=== PATIENT | female | born 1980 | race Caucasian/White ===

== ENCOUNTER 2016-12-16 21:22 | Inpatient (IN) | payer OTHER ==
[~2016-12-16] VITALS: Ht 172.7 cm; Wt 108.4 kg
[~2016-12-16 21:22] MED LIST: DOCO200C; LEVO100T5 PO; MACR100C2 PO; ZANT150T2 PO
[2016-12-16] MEDS ORDERED: SODIUM CHLOR 0.9% 1000 ML INJ 1,000 ML OTHER PRN (21:53)
[2016-12-16] MEDS: LACTATED RINGER'S 1000 ML INJ 1,000 ML IV SCH (21:53)
[2016-12-16] MEDS ORDERED: LACTATED RINGER'S 1000 ML INJ 1,000 ML IV PRN (21:56)
[2016-12-16 22:00] VITALS: RESP 18; TEMP 97.9
[2016-12-16] MEDS ORDERED: SODIUM CHLORID 0.9% 500 ML INJ 500 ML IV PRN (22:00)
[2016-12-16] MEDS ORDERED: LIDOCAINE HCL 1% 50 ML VIAL INFIL PRN (22:00)
[2016-12-16] MEDS ORDERED: MINERAL OIL 10 ML VIAL TOPICAL PRN (22:00)
[2016-12-16] MEDS ORDERED: CITRIC ACID-SODIUM CITRATE LIQ 30 ML UDC PO SCH (22:00)
[2016-12-16] MEDS ORDERED: ONDANSETRON HCL 4 MG/2 ML VIAL IV PRN (22:00)
[2016-12-16] MEDS ORDERED: MISOPROSTOL 25 MCG SUPP VAGINAL ONE (22:00)
[2016-12-16] MEDS ORDERED: LIDOCAINE HCL 1% 50 ML VIAL I-DERMAL PRN (22:00)
[2016-12-16] MEDS ORDERED: SODIUM CHLORIDE 0.9% FLUSH 10 ML FLUSH IV FLUSH PRN (22:00)
[2016-12-16] MEDS ORDERED: OXYTOCIN 30 UNITS-500ML PREMIX 500 ML IV ONE (22:00)
--- NOTE | 2016-12-16 22:10 | HHI.HP ---
HPI Chief Complaint iol for ghtn Date Seen: Dec 16, 2016 Travel History International Travel<30 Days: No Contact w/Intl Traveler<30Days: No Known Affected Area: No History of Present Illness HPI 26 yo being admitted for iol for ghtn and suspected macrosomia. She was seen in clinic today and noted to have BP elevated from baseline and trace proteinuria. She has had no visual changes, ruq pain, or MOORE. Notes good movement, no lof, irreg contractions. Para: 1 : 2 History Past Medical History Narrative Medical obesity, hypothyroid, childhood asthma Obstetric History Obstetric History G1 at 39 wk, 7 lb 15 oz female, delivered by Dr. Dennison Past Surgical History Surgical History: No Previous Surgery Family History Family History: Negative Social History Alcohol Use: No Tobacco Use: No Substance Abuse: No Allergies-Medications (Allergen,Severity, Reaction): Coded Allergies: No Known Allergies (Unverified , 05/02/16) Home Meds Active Scripts Nitrofurantoin Monohydrate Macrocrystals (Macrobid)100 Mg [id number] Mg PO BID 7 Days Prov:Paty Perez MD 05/02/16 Reported Medications Ranitidine (Zantac)150 Mg [id number] Mg PO BID #60 TAB Ref 0 05/02/16 Docosahexaenoic Acid ( Dha)200 Mg Cap 05/02/16 Levothyroxine 100 Mcg [id number] Mcg PO DAILY #30 TAB Ref 0 05/02/16 Review of Systems General / Constitutional: No: Fever, Weight Gain, Chills, Other Eyes: No: Diploplia, Blurred Vision, Visual changes, Pain, Photophobia HENT: No: Headaches, Vertigo, Lightheadedness Cardiovascular: No: Irregular Rhythm, Chest Pain or Discomfort, Palpitations, Tachycardia, Syncope, Varicosities, Edema, Cyanosis Respiratory: No: Cough, Short of Breath, Other Gastrointestinal: No: Nausea, Vomiting, Diarrhea Genitourinary: No: Decreased Urinary Output, Oliguria Musculoskeletal: No: Limited ROM, Weakness, Cramping, Edema, Pain Skin: No Rash, No Itching, No Dryness, No Lumps, No Change in Pigmentation, No Change in Nails, No Alopecia, No Lesions Neurologic: No: Weakness, Dizziness, Syncope, Focal Abnormalities, Coordination Problem, Headache, Slurred Speech, Seizures Psychiatric: No: Depression, Suicidal Ideations, Homicidal Ideation Endocrine: No: Heat Intolerance, Cold Intolerance, Polydipsia, Polyuria, Other Physical Exam Narrative GENERAL: Well-nourished, well-developed patient. SKIN: Warm and dry. HEAD: Normocephalic and atraumatic. EYES: No scleral icterus. No injection or drainage. ENT: No nasal drainage noted. Mucous membranes pink. Airway patent. NECK: Supple, trachea midline. No JVD. CARDIOVASCULAR: Regular rate and rhythm without murmurs, gallops, or rubs. RESPIRATORY: Breath sounds equal bilaterally. No accessory muscle use. ABDOMEN/GI: Abdomen soft, non-tender, bowel sounds present, no rebound, no guarding Gravid to [-] weeks size Fundal Height: [-] GENITOURINARY: External Genitalia: intact and normal in appearance BUS glands: [-] Cervix: [-] Dilatation: [2/50/-3] Effacement: [-] Station: [-] Presentation: [-] Membranes: [intact Uterine Contractions: [-] FHT's: Cat I Category: [-] Baseline: [- Reactive: [-] Variability: [-] Decels: [-] EXTREMITIES: No cyanosis or edema. BACK: Nontender without obvious deformity. No CVA tenderness. NEUROLOGICAL: Awake and alert. Motor and sensory grossly within normal limits. Five out of 5 muscle strength in all muscle groups. Normal speech. Data Data Vital Signs Reviewed: Yes Orders Admit To Inpatient (12/16/16 ) Diet Liquid (12/17/16 Breakfast) ^ Labor Induction (12/16/16 21:53) ^ Vaginal Insert (12/16/16 21:53) ^ Vaginal Lavage (12/16/16 21:53) Heart (12/16/16 21:53) Lactated Ringer's 1000 Ml Inj (Lr 1000 M (12/16/16 21:53) Sodium Chloride 0.9% Flush (Ns Flush) (12/17/16 09:00) Sodium Chloride 0.9% Flush (Ns Flush) (12/16/16 22:00) Sodium Chlor 0.9% 1000 Ml Inj (Ns 1000 M (12/16/16 21:53) Misoprostol Supp (Cytotec Supp) (12/16/16 22:00) Misoprostol Supp (Cytotec Supp) (12/17/16 02:00) Inpatient Certification (12/16/16 ) Comprehensive Metabolic Panel (12/16/16 21:55) Uric Acid (12/16/16 21:55) Levothyroxine (Synthroid) (12/17/16 09:00) Vital Signs (Adult) .Per protocol (12/16/16 21:56) Activity Oob Ad Marilu (12/16/16 21:56) Heart (12/16/16 21:56) Amnioinfusion (12/16/16 21:56) Urinary Catheter Management .ONCE (12/16/16 21:56) Lactated Ringer's 1000 Ml Inj (Lr 1000 M (12/16/16 21:56) Sodium Chlorid 0.9% 500 Ml Inj (Ns 500 M (12/16/16 22:00) Sodium Chlor 0.9% 1000 Ml Inj (Ns 1000 M (12/16/16 22:16) Lidocaine 1% Inj (50 Ml) (Xylocaine 1% I (12/16/16 22:00) Citric Acid-Sodium Citrate Liq (Bicitra (12/16/16 22:00) Ondansetron Inj (Zofran Inj) (12/16/16 22:00) Fentanyl Inj (Fentanyl Inj) (12/16/16 22:00) Fentanyl Inj (Fentanyl Inj) (12/16/16 22:00) Complete Blood Count With Diff (12/16/16 21:56) Hold Clot (12/16/16 21:56) Abo/Rh Blood Type (12/16/16 21:56) Urinalysis - C+S If Indicated (12/16/16 21:56) Resp Oxygen Non Rebreathe Mask (12/16/16 ) ^ Epidural / Intrathecal Infus (12/16/16 21:56) Oxytocin 30 Units-500ml Premix (Pitocin (12/16/16 22:00) Lidocaine 1% Inj (50 Ml) (Xylocaine 1% I (12/16/16 22:00) Light Mineral Oil (Muri-Lube Oil) (12/16/16 22:00) Specimen To Be Collected PRN (12/16/16 21:56) Assessment/Plan Assessment and Plan 36 yo with iup at 39w2d being admitted for iol for ghtn 1) GHTN- will get pih labs 2) iol- will start with misoprostol sup 3) elevated bmi- 33 lb wt gain this ; normal 1 hr gct, followed with growth u/s in third trimester 4) suspected macrosomia- last growth u/s on 11/29 noted EFW 98%ile, 8 lb 6 oz. Projected weight 9-9.5 pounds now. Offered primary CD, pt declined. Discussed at length over multiple visits risks of macrosomia including arrest of dilation and descent, uterine atony and hemorrhage risk, shoulder dystocia and associated maternal complications of lacerations, hematomas, along w risks of clavicular/humeral fracture, brachial plexus injury, anoxic injury. Pelvis is only proven to 7lb 15 oz 5) Rh neg- rhogam given at 28 wk 6) Hypothyroidism on Synthroid 100 microgram 7) GBS negative Lynsey Sandy MD Dec 16, 2016 22:10
[2016-12-16] MEDS ORDERED: SODIUM CHLOR 0.9% 1000 ML INJ 1,000 ML IV PRN (22:16)
[2016-12-16] MEDS ORDERED: ZOLPIDEM TARTRATE 10 MG TAB PO PRN (22:30)
[2016-12-16 22:51] VITALS: BP 124/72; PULSE 94
[2016-12-16 23:00] VITALS: RESP 20
[2016-12-16 23:15] LABS: AUTOMATED NEUTROPHIL # 7.4 TH/MM3 (1.8-7.7); BASOPHIL % 0.4 % (0.0-2.0); EOSINOPHIL # 0.2 TH/MM3 (0-0.4); EOSINOPHIL % 1.9 % (0.0-4.0); HEMATOCRIT 39.4 % (35.0-46.0); HEMO FLAGS DIFF FINAL; LYMPH % 21.2 % (9.0-44.0); LYMPHOCYTE # 2.3 TH/MM3 (1.0-4.8); MEAN CELL VOLUME 80.6 FL (80.0-100.0); MEAN CORPUSCULAR HEMOGLOBIN 25.6 PG (27.0-34.0); MEAN CORPUSCULAR HGB CONC 31.8 % (32.0-36.0); MONO % 6.5 % (0.0-8.0); PLATELET COUNT 275 TH/MM3 (150-450); RED BLOOD COUNT 4.89 MIL/MM3 (4.00-5.30); WHITE BLOOD COUNT 10.6 TH/MM3 (4.0-11.0)
[2016-12-16 23:28] LABS: BLOOD, URINE NEG (NEG); COMMENT (UR) CULT NOT INDICATED; CULTURE IF INDICATED CULT NOT INDICATED; GLUCOSE,URINE 70 mg/dL (NEG); KETONE, URINE TRACE mg/dL (NEG); MUCUS URINE FEW /lpf (OCC); NITRITE,URINE NEG (NEG); SQUAMOUS EPITHELIAL CELL URINE 7 /hpf (0-5); URINE COLOR YELLOW (YELLW/STRAW)
[2016-12-16 23:39] VITALS: BP 133/59; PULSE 87; RESP 18
[2016-12-16 23:44] LABS: ALT (GPT) 16 U/L (10-53); ANION GAP 8 MEQ/L (5-15); AST (GOT) 13 U/L (15-37); BICARBONATE 25.6 MEQ/L (21.0-32.0); BLOOD UREA NITROGEN 9 MG/DL (7-18); CHLORIDE 108 MEQ/L (98-107); GLOMERULAR FILTRATION RATE 108 ML/MIN (>89); SODIUM (NA) 142 MEQ/L (136-145); URIC ACID 4.6 MG/DL (2.6-6.0)
[2016-12-16 23:46] LABS: ALKALINE PHOSPHATASE 126 U/L (45-117); TOTAL BILIRUBIN ADULT 0.2 MG/DL (0.2-1.0)
[2016-12-17] VITALS (35 sets, daily range): BP systolic 108–144; BP diastolic 54–87; PULSE 62–88; RESP 16–20; TEMP 97.4–98.2; O2SAT 99–100
[2016-12-17] MEDS ORDERED: MISOPROSTOL 25 MCG SUPP VAGINAL PRN (02:00)
[2016-12-17] MEDS ORDERED: OXYTOCIN 30 UNITS/NS 500ML PREMIX IV SCH (06:00)
[2016-12-17] MEDS ORDERED: LEVOTHYROXINE SODIUM 100 MCG TAB PO SCH (07:00)
[2016-12-17] MEDS ORDERED: OXYTOCIN 30 UNITS-500ML PREMIX 500 ML IV SCH (08:15)
[2016-12-17] MEDS ORDERED: SODIUM CHLORIDE 0.9% FLUSH 10 ML FLUSH IV FLUSH SCH ×2 (09:00→21:00)
[2016-12-17] MEDS: LACTATED RINGER'S 1000 ML INJ 1,000 ML IV SCH (09:39)
[2016-12-17] MEDS ORDERED: OXYTOCIN 10 UNIT/ML AMP ONE (15:28)
[2016-12-17] MEDS ORDERED: SODIUM CHLORIDE 0.9% FLUSH 10 ML FLUSH IV FLUSH PRN (15:30)
[2016-12-17] MEDS ORDERED: OXYTOCIN 30 UNITS-500ML PREMIX 500 ML IV ONE (15:30)
[2016-12-17] MEDS ORDERED: ACETAMINOPHEN 325 MG TAB PO PRN (15:30)
[2016-12-17] MEDS ORDERED: oxyCODONE/ACETAMINOPHEN 5 MG/325 MG TAB PO PRN (15:30)
[2016-12-17] MEDS ORDERED: ONDANSETRON HCL 4 MG/2 ML VIAL IV PUSH PRN (15:30)
[2016-12-17] MEDS ORDERED: ceFAZolin INJ 1,000 MG VIAL ONE (15:44)
[2016-12-17] MEDS ORDERED: ACETAMINOPHEN 1000 MG/100 ML VIAL IV ONE ×2 (15:45→17:05)
[2016-12-17] MEDS ORDERED: LACTATED RINGER'S 1,000 ML BAG IV ONE (16:14)
--- NOTE | 2016-12-17 16:56 | PD.OB.DELI ---
Procedure Note Section Procedure Performed by Clark Acosta Procedure: Primary Low Transverse Sec (with bilateral tubal ligation) Indication for delivery: malposition ( macrosomia) Informed consent obtained: For anesthesia, For procedure Confirmed correct: Patient, Procedure, Site, Time-out taken Anesthesia: Spinal Medication prior to procedure: As documented in eMAR Monitoring during procedure: Blood pressure monitoring, potter or ceramic artist, doppler, Pulse oximetry Urinary catheter: Inserted using sterile technique, To dependent drainage Sterile preparation: Duraprep, In usual fashion Position: Supine with wedge to right side, Supine with safety belt applied Operative Features Skin Incision: Pfannenstiel Uterine Incision: Low transverse w/knife / blunt ext, Low transverse w/knife / scissors Membranes Ruptured: Artificially Presentation: Occiput anterior Delivery of infant: Assisted (kiwi vacuum x 2) : Male One Minute : 9 Five Minute : 9 Weight: 9/0 Status of : Viable, Umbilical cord, Nursery present Placenta delivered: Intact Medications: Antibiotics, Oxytocin Estimated blood loss: 600cc Procedure tolerated: Well Maternal Condition: Stable Condition: Stable Clark Acosta MD Dec 17, 2016 16:56
[2016-12-17] MEDS ORDERED: LEVOTHYROXINE SODIUM 150 MCG TAB PO ONE (17:00)
[2016-12-17] MEDS ORDERED: MORPHINE SULFATE PF 5 MG/10 ML VIAL ONE (17:04)
[2016-12-17] MEDS ORDERED: FAMOTIDINE 20 MG TAB PO SCH (17:30)
[2016-12-17] MEDS ORDERED: EPIDURAL-DO NOT ADMINISTER ANTICOAGULANTS PRN (18:15)
[2016-12-17] MEDS ORDERED: EPIDURAL-DIPHENHYDRAMINE HCL 50 MG CAP PO PRN (18:15)
[2016-12-17] MEDS ORDERED: EPIDURAL-NO SYSTEMIC NARCOTICS PRN (18:15)
[2016-12-17] MEDS ORDERED: EPIDURAL-DIPHENHYDRAMINE HCL 50 MG/ML VIAL IV PUSH PRN (18:15)
[2016-12-17] MEDS ORDERED: EPIDURAL-NALOXONE HCL 0.4 MG/ML AMP IV PRN (18:15)
[2016-12-17] MEDS ORDERED: LACTATED RINGER'S 1000 ML INJ 1,000 ML IV SCH (20:30)
[2016-12-17] MEDS: FAMOTIDINE 20 MG TAB PO SCH (21:00)
[2016-12-18] VITALS: BP 114/86; PULSE 93; RESP 16; TEMP 97.5
[2016-12-18] MEDS ORDERED: OXYTOCIN 30 UNITS-500ML PREMIX 500 ML IV PRN (01:30)
[2016-12-18 04:00] VITALS: BP 134/84; PULSE 86; RESP 16; TEMP 98
[2016-12-18] MEDS: IBUPROFEN 600 MG TAB PO PRN ×3 (05:49→20:56)
[2016-12-18] MEDS: LEVOTHYROXINE SODIUM 150 MCG TAB PO SCH (05:50)
[2016-12-18 06:26] LABS: AUTOMATED NEUTROPHIL # 8.4 TH/MM3 (1.8-7.7); BASOPHIL % 0.3 % (0.0-2.0); EOSINOPHIL # 0.1 TH/MM3 (0-0.4); EOSINOPHIL % 0.6 % (0.0-4.0); HEMATOCRIT 33.6 % (35.0-46.0); HEMO FLAGS DIFF FINAL; LYMPH % 16.4 % (9.0-44.0); LYMPHOCYTE # 1.8 TH/MM3 (1.0-4.8); MEAN CELL VOLUME 81.2 FL (80.0-100.0); MEAN CORPUSCULAR HEMOGLOBIN 25.9 PG (27.0-34.0); MEAN CORPUSCULAR HGB CONC 31.9 % (32.0-36.0); MONO % 4.7 % (0.0-8.0); PLATELET COUNT 206 TH/MM3 (150-450); RED BLOOD COUNT 4.14 MIL/MM3 (4.00-5.30); WHITE BLOOD COUNT 10.8 TH/MM3 (4.0-11.0)
[2016-12-18] MEDS: oxyCODONE/ACETAMINOPHEN 5 MG/325 MG TAB PO PRN ×4 (06:49→20:55)
[2016-12-18 08:00] VITALS: BP 135/68; PULSE 93; RESP 17; TEMP 98.7
[2016-12-18] MEDS: FAMOTIDINE 20 MG TAB PO SCH ×2 (08:01→20:54)
--- NOTE | 2016-12-18 10:53 | HHI.OB ---
Subjective Post Operative Day: 1 Remarks POD#1, Doing well Objective Vitals/I&O Vital Signs Date Time Temp Pulse Resp B/P Pulse Ox O2 Delivery O2 Flow Rate FiO2 12/18/16 08:00 98.7 93 17 12/18/16 08:00 135/68 12/18/16 08:00 135/68 12/18/16 04:00 98.0 86 16 134/84 12/18/16 00:00 114/86 12/18/16 00:00 97.5 93 16 12/17/16 20:00 97.8 12/17/16 20:00 67 18 133/87 12/17/16 18:39 97.5 73 18 125/77 12/17/16 18:09 97.4 12/17/16 18:00 62 123/67 12/17/16 18:00 17 100 12/17/16 17:45 131/66 12/17/16 17:45 74 16 100 12/17/16 17:30 70 16 121/57 100 12/17/16 17:15 76 20 120/74 100 12/17/16 17:00 97.6 99 12/17/16 17:00 88 18 108/55 12/17/16 15:01 79 121/66 12/17/16 14:04 86 144/87 12/17/16 13:01 81 140/62 12/17/16 13:00 16 12/17/16 12:59 98.2 12/17/16 12:31 77 133/75 12/17/16 12:01 82 124/72 12/17/16 11:43 16 12/17/16 11:41 79 120/67 12/17/16 11:01 79 113/54 Result Diagram: 12/18/16 0606 12/16/16 2100 Objective Remarks GENERAL: Well-nourished, well-developed patient. CARDIOVASCULAR: Regular rate and rhythm without murmurs, gallops, or rubs. RESPIRATORY: Breath sounds equal bilaterally. No accessory muscle use. ABDOMEN/GI: Abdomen soft, non-tender, bowel sounds present. Incision: Clean, dry and intact. Fundus: Firm, non-tender at umbilicus. GENITOURINARY: Light to moderate bleeding. EXTREMITIES: No cyanosis or edema, non-tender, without signs of DVT. Medications and IVs Current Medications Medications (Trade) Dose Ordered Sig/Juany Route Start Time Stop Time Status Last Admin Lactated Ringer's 1,000 ml @ 125 mls/hr Q8H IV 12/16/16 21:53 12/17/16 09:39 Lactated Ringer's 1,000 ml @ 3,000 mls/hr Q20M PRN IV 12/16/16 21:56 12/17/16 15:35 (NS 1000 ml Inj) 1,000 ml @ 100 mls/hr Q10H PRN IV 12/16/16 22:16 (fentaNYL INJ) 50 mcg Q1H PRN IV PUSH 12/16/16 22:00 (fentaNYL INJ) 100 mcg Q1H PRN IV PUSH 12/16/16 22:00 (Muri-Lube Oil) 10 ml UNSCH PRN TOPICAL 12/16/16 22:00 Zolpidem Tartrate 10 mg 10 mg HS PRN PO 12/16/16 22:30 Oxytocin 500 ml @ 0 mls/hr TITRATE IV 12/17/16 08:15 (Lr 1000 ml Inj) 1,000 ml @ 100 mls/hr Q10H IV 12/17/16 20:30 12/18/16 16:29 12/17/16 00:00 (NS Flush) 2 ml BID IV FLUSH 12/17/16 21:00 (NS Flush) 2 ml UNSCH PRN IV FLUSH 12/17/16 15:30 (Mylicon Chew) 80 mg QID PRN PO 12/17/16 15:30 (Tylenol) 650 mg Q6H PRN PO 12/17/16 15:30 (Motrin) 600 mg Q6H PRN PO 12/17/16 15:30 12/18/16 05:49 (Percocet 5-325 Mg) 1 tab Q4H PRN PO 12/17/16 15:30 12/18/16 06:49 (Percocet 5-325 Mg) 2 tab Q4H PRN PO 12/17/16 15:30 (Chante-Colace) 2 tab Q12H PRN PO 12/17/16 15:30 (M-M-R Ii Inj) 0.5 ml ONCE ONCE SQ 12/18/16 16:00 12/18/16 16:01 (Boostrix Inj) 0.5 ml ONCE ONCE IM 12/18/16 16:00 12/18/16 16:01 (Zofran Inj) 4 mg Q6H PRN IV PUSH 12/17/16 15:30 12/17/16 21:12 (Pepcid) 20 mg BID PO 12/17/16 21:00 12/18/16 08:01 Miscellaneous Information NO SYSTEMIC NARCOTICS TO BE GIVEN FO... UNSCH PRN .XX 12/17/16 18:15 12/18/16 18:14 (Narcan Inj) 0.4 mg UNSCH PRN IV 12/17/16 18:15 12/18/16 18:14 (Benadryl Inj) 25 mg Q6H PRN IV PUSH 12/17/16 18:15 12/18/16 18:14 (Benadryl) 50 mg Q6H PRN PO 12/17/16 18:15 12/18/16 18:14 Miscellaneous Information ALL NURSING DEPARTMENTS UNSCH PRN .XX 12/17/16 18:15 12/18/16 18:14 (Synthroid) 150 mcg DAILY@06 PO 12/18/16 06:00 12/18/16 05:50 Assessment/Plan Assessment and Plan POD#1, S/P LTCS, Stable, plan d/c home POD#2-3 Discharge Planning Routine day #2-3 Clark Acosta MD Dec 18, 2016 10:53
--- NOTE | 2016-12-18 10:54 | HHI.DS ---
Admission Date Dec 16, 2016 at 21:22 Admitting Diagnosis Diagnosis: : Primary : Male Brief History 26 yo being admitted for iol for ghtn and suspected macrosomia. She was seen in clinic today and noted to have BP elevated from baseline and trace proteinuria. She has had no visual changes, ruq pain, or MOORE. Notes good movement, no lof, irreg contractions. Pt Condition on Discharge: Good Discharge Disposition: Discharge Home Discharge Instructions Diet Instructions: As Tolerated, No Restrictions Activities You Can Perform: Shower Only-No Bath Activities to Avoid: Prolonged Standing, Strenuous Activity, Driving, Sexual Activity Clark Acosta MD Dec 18, 2016 10:54
[2016-12-18] MEDS ORDERED: OXYC1TAB63 PO (10:56)
[2016-12-18] MEDS ORDERED: IBUP-232 PO (10:56)
[2016-12-18] MEDS ORDERED: DIPHTH/TETANUS/ACEL PERTUSSIS (BOOSTER) 0.5 ML VIAL/PFS IM ONE (16:00)
[2016-12-18] MEDS ORDERED: MEASLES, MUMPS, RUBELLA VACCINE 0.5 ML VIAL SQ ONE (16:00)
[2016-12-18] MEDS: SIMETHICONE 80 MG CHEWABLE TAB PO PRN (17:53)
[2016-12-18] MEDS: DOCUSATE SODIUM 50 MG/SENNA 8.6 MG TAB PO PRN (17:53)
--- NOTE | 2016-12-18 21:49 | MP ---
cc: CLARK KLEIN M.D. DATE OF SURGERY 12/17/2016 PREOPERATIVE DIAGNOSIS Patient with term intrauterine , history of gestational hypertension and macrosomia. The patient for elective sterilization. PROCEDURE Primary low transverse section, delivery of viable male , bilateral tubal ligation. POSTOPERATIVE DIAGNOSIS Patient with term intrauterine , history of gestational hypertension and macrosomia. ANESTHESIA Spinal. ESTIMATED BLOOD LOSS 600 cc. DRAINS Yoo to gravity. OPERATIVE FINDINGS Male infant weighing 9 pounds even. Apgars were 9 at 1 minute, 9 at 5. Left occiput, transverse clear, fluid. Three-vessel cord. INDICATIONS FOR PROCEDURE The patient was brought in for concerns related to developing preeclampsia, gestational hypertension. The patient was stable. Concerns for macrosomia were documented by Dr. Sandy. Estimated weight was in excess of 9 pounds. The patient was brought in for induction, failed to progress, presenting part was unstable in the pelvis and prohibiting artificial rupture of membranes. After Pitocin induction all day with a maximum rate of 20 milliunits per minute the patient was counseled to her options to either proceed with continued serial induction verses elective . After reviewing the risks, benefits and complications the patient elected for primary section due to concerns for macrosomia. The patient received Ancef 2 grams. PROCEDURE IN DETAIL She was taken to the operating suite in stable condition. heart rate tracing remained category one. She underwent spinal anesthetic without complication. She had sequentials placed on lower extremities and she had a Yoo inserted by sterile technique draining clear urine. Once she was prepped and draped a time-out was conducted and agreed by all present in the room. The patient had excellent pain management. Pfannenstiel incision was utilized after a time-out was conducted. The incision was carried through the skin down to the subcutaneous layer identifying the fascia in the midline clearing the fascia of the subcutaneous tissue and then opening the fascia laterally. The fascia was then dissected from the rectus muscle. The rectus muscle in the midline and the peritoneum was entered sharply without difficulty and extended. This allowed visualization of the lower uterine segment where a bladder flap was developed briefly, allowing exposure of the lower uterine segment. Transverse incision was made in the lower uterine segment with clear fluid. The was then positioned for the use of a Kiwi. The Kiwi was placed gently and then two applications were necessary and delivery of the head was accomplished without difficulty. The infant was delivered in total with good tone and cry and the infant was taken to the isolette after the cord was doubly clamped and cut by the NICU nurse present. The cord samples obtained for typing. The placenta was removed intact with trailing membranes and then sent as a donation. The uterus was exteriorized, closed with a double layer first as a running locking suture of 0 Monocryl followed by second imbricating suture of 0 Monocryl with good result. No active bleeding, no hematoma. The fallopian tubes were identified and easily opened at the mesentery and then placing 2-0 plain suture proximally distally allowing excision of the mid isthmic portion of fallopian tube. The luminal ends were cauterized briefly once hemostasis was confirmed. After bilateral tubal ligation was complete the uterus was returned to its normal anatomic position in the pelvis. Observation off pressure revealed no active bleeding. The pelvis was irrigated with small amount of normal saline which was retrieved. Again, observation confirmed hemostasis. Full count was made and correct and then a 2-0 plain suture was used to close the peritoneum in a simple running fashion. The muscle bellies were reapproximated with a loose interrupted mattress suture of 2 Monocryl. The fascia was then closed with 0 Vicryl in a simple running fashion with good result. Subcutaneous layer was irrigated. Any active bleeding was cauterized. The space was reapproximated with a running suture of 2 Monocryl and a zero Stratafix suture was placed in the subcuticular fascia to close the skin. Steri-Strips were applied. Dressing was applied over that. The patient was stable. was doing well in the regular nursery. Clark Klein MD SJAsiya/DIMAS /5:08 PM /9:26 PM
[2016-12-19] MEDS: oxyCODONE/ACETAMINOPHEN 5 MG/325 MG TAB PO PRN ×4 (04:34→21:20)
[2016-12-19] MEDS: IBUPROFEN 600 MG TAB PO PRN ×3 (04:35→17:07)
[2016-12-19] MEDS: DOCUSATE SODIUM 50 MG/SENNA 8.6 MG TAB PO PRN ×2 (04:36→20:58)
[2016-12-19] MEDS: LEVOTHYROXINE SODIUM 150 MCG TAB PO SCH (07:39)
[2016-12-19 08:05] VITALS: BP 122/86; PULSE 86; RESP 18; TEMP 97.7
[2016-12-19] MEDS: FAMOTIDINE 20 MG TAB PO SCH ×2 (08:14→20:56)
--- NOTE | 2016-12-19 10:32 | PD.CIRC ---
Circumcision Procedure Note Procedure: Circumcision Pre-procedure diagnosis: circumcision Post-procedure diagnosis: circumcision Informed Consent: The risks, benefits, indications, potential complications, and alternatives were explained to the patient/family and informed consent obtained. The baby was brought to the procedure room where a time-out was done to ID the patient and the procedure. Performing Physician: Clark Acosta Anesthesia used: 1% lidocaine injected Type of block: dorsal penile block Device used: Mogen Description: The baby was prepped and draped in a sterile fashion. The procedure followed standard technique. The baby tolerated the procedure well without complication. Findings: normal genitalia Estimated blood loss: none Specimen: Clark Jules MD Dec 19, 2016 10:32
--- NOTE | 2016-12-19 10:38 | HHI.OB ---
Subjective Post Operative Day: 2 Remarks POD#2, painful ,requires 2 percocet, otherwise doing ok Objective Vitals/I&O Vital Signs Date Time Temp Pulse Resp B/P Pulse Ox O2 Delivery O2 Flow Rate FiO2 12/19/16 08:05 97.7 86 18 122/86 Result Diagram: 12/18/16 0606 12/16/16 2100 Objective Remarks GENERAL: Well-nourished, well-developed patient. CARDIOVASCULAR: Regular rate and rhythm without murmurs, gallops, or rubs. RESPIRATORY: Breath sounds equal bilaterally. No accessory muscle use. ABDOMEN/GI: Abdomen soft, non-tender, bowel sounds present. Incision: Clean, dry and intact. Fundus: Firm, non-tender at umbilicus. GENITOURINARY: Light to moderate bleeding. EXTREMITIES: No cyanosis or edema, non-tender, without signs of DVT. Medications and IVs Current Medications Medications (Trade) Dose Ordered Sig/Juany Route Start Time Stop Time Status Last Admin Lactated Ringer's 1,000 ml @ 125 mls/hr Q8H IV 12/16/16 21:53 12/17/16 09:39 Lactated Ringer's 1,000 ml @ 3,000 mls/hr Q20M PRN IV 12/16/16 21:56 12/17/16 15:35 (NS 1000 ml Inj) 1,000 ml @ 100 mls/hr Q10H PRN IV 12/16/16 22:16 (fentaNYL INJ) 50 mcg Q1H PRN IV PUSH 12/16/16 22:00 (fentaNYL INJ) 100 mcg Q1H PRN IV PUSH 12/16/16 22:00 (Muri-Lube Oil) 10 ml UNSCH PRN TOPICAL 12/16/16 22:00 Zolpidem Tartrate 10 mg 10 mg HS PRN PO 12/16/16 22:30 (Pitocin 30 Units-NS 500 ml Premix) 500 ml @ 0 mls/hr TITRATE IV 12/17/16 08:15 (NS Flush) 2 ml BID IV FLUSH 12/17/16 21:00 (NS Flush) 2 ml UNSCH PRN IV FLUSH 12/17/16 15:30 (Mylicon Chew) 80 mg QID PRN PO 12/17/16 15:30 12/18/16 17:53 (Tylenol) 650 mg Q6H PRN PO 12/17/16 15:30 (Motrin) 600 mg Q6H PRN PO 12/17/16 15:30 12/19/16 04:35 (Percocet 5-325 Mg) 1 tab Q4H PRN PO 12/17/16 15:30 12/19/16 04:34 (Percocet 5-325 Mg) 2 tab Q4H PRN PO 12/17/16 15:30 (Chante-Colace) 2 tab Q12H PRN PO 12/17/16 15:30 12/19/16 04:36 (Zofran Inj) 4 mg Q6H PRN IV PUSH 12/17/16 15:30 12/17/16 21:12 (Pepcid) 20 mg BID PO 12/17/16 21:00 12/19/16 08:14 (Synthroid) 150 mcg DAILY@06 PO 12/18/16 06:00 12/19/16 07:39 Assessment/Plan Assessment and Plan POD#2 ; S/P LTCS, Stable, plan d/c home POD#3 Discharge Planning Routine day #3 Attending Attestation seen by Clark Haines MD Dec 19, 2016 10:38
[2016-12-19 20:00] VITALS: BP 124/75; PULSE 80; RESP 18; TEMP 97.5
[2016-12-19] MEDS: SIMETHICONE 80 MG CHEWABLE TAB PO PRN (21:19)
[2016-12-20] MEDS: oxyCODONE/ACETAMINOPHEN 5 MG/325 MG TAB PO PRN ×2 (01:47→07:30)
[2016-12-20] MEDS: IBUPROFEN 600 MG TAB PO PRN ×3 (01:47→13:22)
[2016-12-20] MEDS: LEVOTHYROXINE SODIUM 150 MCG TAB PO SCH (06:09)
[2016-12-20 07:25] VITALS: BP 127/98; PULSE 85; RESP 16; TEMP 97.8
--- NOTE | 2016-12-20 07:47 | HHI.OB ---
Subjective Post Operative Day: 3 Objective Vitals/I&O Vital Signs Date Time Temp Pulse Resp B/P Pulse Ox O2 Delivery O2 Flow Rate FiO2 12/19/16 20:00 80 18 124/75 12/19/16 20:00 97.5 12/19/16 08:05 97.7 86 18 122/86 Result Diagram: 12/18/16 0606 12/16/16 2100 Objective Remarks GENERAL: Well-nourished, well-developed patient. CARDIOVASCULAR: Regular rate and rhythm without murmurs, gallops, or rubs. RESPIRATORY: Breath sounds equal bilaterally. No accessory muscle use. ABDOMEN/GI: Abdomen soft, non-tender, bowel sounds present. Incision: Clean, dry and intact. Fundus: Firm, non-tender at umbilicus. GENITOURINARY: Light to moderate bleeding. EXTREMITIES: No cyanosis or edema, non-tender, without signs of DVT. Medications and IVs Current Medications Medications (Trade) Dose Ordered Sig/Juany Route Start Time Stop Time Status Last Admin Lactated Ringer's 1,000 ml @ 125 mls/hr Q8H IV 12/16/16 21:53 12/17/16 09:39 Lactated Ringer's 1,000 ml @ 3,000 mls/hr Q20M PRN IV 12/16/16 21:56 12/17/16 15:35 (NS 1000 ml Inj) 1,000 ml @ 100 mls/hr Q10H PRN IV 12/16/16 22:16 (fentaNYL INJ) 50 mcg Q1H PRN IV PUSH 12/16/16 22:00 (fentaNYL INJ) 100 mcg Q1H PRN IV PUSH 12/16/16 22:00 (Muri-Lube Oil) 10 ml UNSCH PRN TOPICAL 12/16/16 22:00 Zolpidem Tartrate 10 mg 10 mg HS PRN PO 12/16/16 22:30 (Pitocin 30 Units-NS 500 ml Premix) 500 ml @ 0 mls/hr TITRATE IV 12/17/16 08:15 (NS Flush) 2 ml BID IV FLUSH 12/17/16 21:00 (NS Flush) 2 ml UNSCH PRN IV FLUSH 12/17/16 15:30 (Mylicon Chew) 80 mg QID PRN PO 12/17/16 15:30 12/19/16 21:19 (Tylenol) 650 mg Q6H PRN PO 12/17/16 15:30 (Motrin) 600 mg Q6H PRN PO 12/17/16 15:30 12/20/16 07:31 (Percocet 5-325 Mg) 1 tab Q4H PRN PO 12/17/16 15:30 12/20/16 07:30 (Percocet 5-325 Mg) 2 tab Q4H PRN PO 12/17/16 15:30 (Chante-Colace) 2 tab Q12H PRN PO 12/17/16 15:30 12/19/16 20:58 (Zofran Inj) 4 mg Q6H PRN IV PUSH 12/17/16 15:30 12/17/16 21:12 (Pepcid) 20 mg BID PO 12/17/16 21:00 12/19/16 20:56 (Synthroid) 150 mcg DAILY@06 PO 12/18/16 06:00 12/20/16 06:09 Assessment/Plan Assessment and Plan POD#3 ; S/P LTCS, Stable, plan d/c home POD#3 Discharge Planning Routine day #3 Lynsey Sandy MD Dec 20, 2016 07:47
[2016-12-20] MEDS: FAMOTIDINE 20 MG TAB PO SCH (08:07)
--- NOTE | 2016-12-20 11:02 | HHI.OB ---
Subjective Post Operative Day: 3 Remarks doing well Objective Vitals/I&O Vital Signs Date Time Temp Pulse Resp B/P Pulse Ox O2 Delivery O2 Flow Rate FiO2 12/20/16 07:25 97.8 85 16 127/98 12/19/16 20:00 80 18 124/75 12/19/16 20:00 97.5 Result Diagram: 12/18/16 0606 12/16/16 2100 Objective Remarks GENERAL: Well-nourished, well-developed patient. CARDIOVASCULAR: Regular rate and rhythm without murmurs, gallops, or rubs. RESPIRATORY: Breath sounds equal bilaterally. No accessory muscle use. ABDOMEN/GI: Abdomen soft, non-tender, bowel sounds present. Incision: Clean, dry and intact. Fundus: Firm, non-tender at umbilicus. GENITOURINARY: Light to moderate bleeding. EXTREMITIES: No cyanosis or edema, non-tender, without signs of DVT. Medications and IVs Current Medications Medications (Trade) Dose Ordered Sig/Juany Route Start Time Stop Time Status Last Admin Lactated Ringer's 1,000 ml @ 125 mls/hr Q8H IV 12/16/16 21:53 12/17/16 09:39 Lactated Ringer's 1,000 ml @ 3,000 mls/hr Q20M PRN IV 12/16/16 21:56 12/17/16 15:35 (NS 1000 ml Inj) 1,000 ml @ 100 mls/hr Q10H PRN IV 12/16/16 22:16 (fentaNYL INJ) 50 mcg Q1H PRN IV PUSH 12/16/16 22:00 (fentaNYL INJ) 100 mcg Q1H PRN IV PUSH 12/16/16 22:00 (Muri-Lube Oil) 10 ml UNSCH PRN TOPICAL 12/16/16 22:00 Zolpidem Tartrate 10 mg 10 mg HS PRN PO 12/16/16 22:30 (Pitocin 30 Units-NS 500 ml Premix) 500 ml @ 0 mls/hr TITRATE IV 12/17/16 08:15 (NS Flush) 2 ml BID IV FLUSH 12/17/16 21:00 (NS Flush) 2 ml UNSCH PRN IV FLUSH 12/17/16 15:30 (Mylicon Chew) 80 mg QID PRN PO 12/17/16 15:30 12/19/16 21:19 (Tylenol) 650 mg Q6H PRN PO 12/17/16 15:30 (Motrin) 600 mg Q6H PRN PO 12/17/16 15:30 12/20/16 07:31 (Percocet 5-325 Mg) 1 tab Q4H PRN PO 12/17/16 15:30 12/20/16 07:30 (Percocet 5-325 Mg) 2 tab Q4H PRN PO 12/17/16 15:30 (Chante-Colace) 2 tab Q12H PRN PO 12/17/16 15:30 12/19/16 20:58 (Zofran Inj) 4 mg Q6H PRN IV PUSH 12/17/16 15:30 12/17/16 21:12 (Pepcid) 20 mg BID PO 12/17/16 21:00 12/20/16 08:07 (Synthroid) 150 mcg DAILY@06 PO 12/18/16 06:00 12/20/16 06:09 Assessment/Plan Assessment and Plan POD#3 ; S/P LTCS, Stable, plan d/c home POD#3 Discharge Planning Routine day #3 Lynsey Sandy MD Dec 20, 2016 11:02
[2016-12-20] MEDS: DOCUSATE SODIUM 50 MG/SENNA 8.6 MG TAB PO PRN (12:20)
== END 2016-12-20 16:41 | disposition home or self-care (01) | DRG 766 ==
LOC: H2EA 21:22 → H1EA 12-17 18:23
PROVIDERS: ADMIT Obstetrics & Gynecology; ATTEND Obstetrics & Gynecology
PROC: 3E0P7GC Introduction of Other Therapeutic Substance into Female Reproductive, Via Natural or Artificial Opening (ICD-10-PCS; 2016-12-16)
PROC: 10D00Z1 Extraction of Products of Conception, Low, Open Approach (ICD-10-PCS; principal; 2016-12-17)
PROC: 0UB70ZZ Excision of Bilateral Fallopian Tubes, Open Approach (ICD-10-PCS; 2016-12-17)
DX: O13.4 Gestational [pregnancy-induced] hypertension without significant proteinuria, complicating childbirth (principal); E66.9 Obesity, unspecified; E03.9 Hypothyroidism, unspecified; O36.63X0 Maternal care for excessive fetal growth, third trimester, not applicable or unspecified; O99.284 Endocrine, nutritional and metabolic diseases complicating childbirth; O32.9XX0 Maternal care for malpresentation of fetus, unspecified, not applicable or unspecified; Z30.2 Encounter for sterilization; Z3A.39 39 weeks gestation of pregnancy; Z37.0 Single live birth; Z67.91 Unspecified blood type, Rh negative
CPT/HCPCS: 59025; 80053; 81001; 84550; 85025; 86850; 86900; 86901; 88302; J0131; J0690; J2274; J2405; J2590; J7120